=== PATIENT | male | born 1975 | race Caucasian/White ===

== ENCOUNTER → 2019-11-24 | Outpatient (CLI) | payer OTHER ==
[~2019-11-24] MED LIST: CITA40TA12; CLON1TAB11
--- NOTE | 2019-11-24 08:32 | RAD ---
EXAM: Bilateral ankles, 3 views. HISTORY: Pain. COMPARISON: None. FINDINGS: 3 views of both ankles are obtained. There is a mildly displaced distal left fibular metaphyseal fracture. The ankle mortises are intact. There is no osteochondral lesion. There is left lateral predominant ankle soft tissue swelling. IMPRESSION: Mildly displaced left distal fibular metaphyseal fracture. Electronically signed by: Amelia Zhou MD (11/24/2019 8:29 AM) [id number]
== END ==
LOC: DXRAD 08:08
PROVIDERS: ATTEND Family Medicine
DX: S89.392A Other physeal fracture of lower end of left fibula, initial encounter for closed fracture (principal); X58.XXXA Exposure to other specified factors, initial encounter; Y93.89 Activity, other specified; Y92.89 Other specified places as the place of occurrence of the external cause; Y99.8 Other external cause status
CPT/HCPCS: 73610

== ENCOUNTER → 2019-11-27 | Outpatient (CLI) | payer OTHER ==
--- NOTE | 2019-11-27 11:05 | RAD ---
3 views the bilateral ankles without comparison for ankle pain. FINDINGS: Radiographs the right ankle are normal save for soft tissue swelling over the lateral malleolus. Great vessels of the left ankle demonstrate a distal fibular oblique fracture at the metadiaphysis with very mild foreshortening and posterior displacement of the distal fracture fragment. IMPRESSION: 1. Distal fibular fracture on the left. 2. Soft tissue swelling about the lateral malleolus on the right with no radiographically evident osseous abnormality on the right. Electronically signed by: Reed Small MD (11/27/2019 11:01 AM) [id number]
== END ==
LOC: DXRAD 09:02
PROVIDERS: ATTEND Family Medicine
DX: S82.832A Other fracture of upper and lower end of left fibula, initial encounter for closed fracture (principal); M25.474 Effusion, right foot; X58.XXXA Exposure to other specified factors, initial encounter; Y93.89 Activity, other specified; Y92.89 Other specified places as the place of occurrence of the external cause; Y99.8 Other external cause status
CPT/HCPCS: 73610

== ENCOUNTER → 2019-12-11 | Outpatient (CLI) | payer OTHER ==
--- NOTE | 2019-12-11 09:48 | RAD ---
EXAM: Left ankle, 3 views. HISTORY: Pain. COMPARISON: 11/27/2019. FINDINGS: 3 views of the left ankle are obtained. There has been slight interval healing of a mildly displaced distal fibular metaphyseal fracture. The fracture line is less distinct and there is surrounding callus formation. There has been associated decrease in ankle soft tissue swelling. The ankle mortise is intact. No osteochondral lesion is seen. IMPRESSION: Healing distal fibular metaphyseal fracture. Electronically signed by: Amelia Zhou MD (12/11/2019 9:45 AM) [id number]
== END | disposition home or self-care (01) ==
LOC: DXRAD 09:08
PROVIDERS: ATTEND Physician Assistant
DX: S82.492A Other fracture of shaft of left fibula, initial encounter for closed fracture (principal); M79.89 Other specified soft tissue disorders; X58.XXXA Exposure to other specified factors, initial encounter; Y93.89 Activity, other specified; Y92.89 Other specified places as the place of occurrence of the external cause; Y99.8 Other external cause status
CPT/HCPCS: 73610